=== PATIENT | female | born 1995 | race Asian ===

== ENCOUNTER 2023-05-28 08:00 | Outpatient (CLI) | payer OTHER ==
[2023-05-28 16:02] LABS: BILIRUBIN,URINE NEGATIVE (NEGATIVE); GLUCOSE, URINE (UA) NEGATIVE (NEGATIVE); KETONES,URINE (UA) NEGATIVE (NEGATIVE); LEUKOCYTE ESTERASE, URINE MODERATE (NEGATIVE); NITRITE,URINE NEGATIVE (NEGATIVE); OCCULT BLOOD,URINE TRACE-INTA (NEGATIVE); PROTEIN,URINE NEGATIVE (NEGATIVE); UROBILINOGEN,URINE 0.2 (NORMAL) E.U./dL (NORMAL)
[2023-05-28 16:03] LABS: CLARITY,URINE HAZY (CLEAR)
[2023-05-28 16:16] LABS: BACTERIA,URINE Moderate /HPF (None Seen); RBC,URINE 0-5 /HPF (0-5); SQUAMOUS EPITHELIAL CELL,UR MANY Squamous (<= Few); WBC,URINE >25 /HPF (0-5)
== END 2023-05-28 23:59 | disposition home or self-care (01) ==
LOC: LAB 08:00
PROVIDERS: ATTEND Obstetrics & Gynecology
DX: Z34.00 Encounter for supervision of normal first pregnancy, unspecified trimester (principal)
CPT/HCPCS: 81001; 87086

== ENCOUNTER 2023-06-03 18:26 | Outpatient (CLI) | payer OTHER ==
--- NOTE | 2023-06-04 16:09 | Ultrasound Report ---
PROCEDURE: OB First Trimester INDICATIONS: POSITIVE TEST OUTSIDE/PRIOR DATING DATA: Last menstrual period (LMP): 04/05/2023. LMP-based estimated date of delivery (LEO): 01/10/2024. First dating scan (date and location): 06/03/2023 01/10/2024. Estimated date of delivery (LEO) from first dating scan: . TECHNIQUE: Real-time scanning was performed of the fetus and maternal pelvic organs, with image documentation. COMPARISON: None. FINDINGS: Intrauterine gestational sac present. Embryo: Single intrauterine is present with crown-rump length measuring 1.9 cm correspondi ng to 8 weeks 3 days. Heart rate: 176 bpm. Other: Subchorionic hemorrhage is present measuring 1.8 x 1.3 x 1.4 cm. Measurement variability in dating: +/- 4 weeks by LMP, +/- 7 days by mean sac diameter (use before 6 weeks gestation if crown-rump length not able to be measured), +/- 5 days by crown-rump length (6-12 weeks gestation). Maternal organs: Ovaries appear within normal limits. IMPRESSION: Single live intrauterine with ultrasound gestational age of 8 weeks 3 days. Small subchorio marychuy hemorrhage. Recommend follow-up imaging at 20-22 weeks for dates and anatomy. Reviewed by: Pepper Zavaleta MD on 06/04/2023 4:07 PM PDT Approved by: Pepper Zavaleta MD on 06/04/2023 4:07 PM PDT Station ID: [id number]
== END 2023-06-03 18:27 | disposition home or self-care (01) ==
LOC: DI 18:26
PROVIDERS: ATTEND Obstetrics & Gynecology
DX: O20.8 Other hemorrhage in early pregnancy (principal); Z3A.08 8 weeks gestation of pregnancy; Z36.89 Encounter for other specified antenatal screening
CPT/HCPCS: 36415; 85025; 86592; 86762; 86787; 86803; 86850; 86900; 86901; 87340; 87389

== ENCOUNTER 2023-06-03 19:13 | Outpatient (CLI) | payer OTHER ==
[2023-06-03 20:04] LABS: BASOPHILS % (AUTO) 0.4 %; EOSINOPHILS # (AUTO) 0.1 10^3/uL (0.0-0.7); EOSINOPHILS % (AUTO) 1.2 %; HCT - HEMATOCRIT 35.1 % (37.0-47.0); LYMPHOCYTES # (AUTO) 2.1 10^3/uL (1.5-3.5); LYMPHOCYTES % (AUTO) 19.4 %; MEAN CORPUSCULAR HEMOGLOBIN 29.1 pg (27.0-31.0); MEAN CORPUSCULAR HGB CONC 34.2 g/dL (32.0-36.0); MEAN PLATELET VOLUME 10.3 fL (7.9-10.8); MONOCYTES # (AUTO) 0.9 10^3/uL (0.0-1.0); MONOCYTES % (AUTO) 8.5 %; NEUTROPHILS # (AUTO) 7.5 10^3/uL (1.5-6.6); NEUTROPHILS % (AUTO) 70.2 %; PLT - PLATELET COUNT 285 10^3/uL (130-450); RED BLOOD COUNT 4.13 10^6/uL (4.20-5.40); RED CELL DISTRIBUTION WIDTH 13.2 % (12.0-15.0); WHITE BLOOD COUNT 10.6 x10^3/uL (4.8-10.8)
[2023-06-05 08:10] LABS: HBsAG SCREEN Negative (Negative); RPR Non Reactive (Non Reactive); VARICELLA-ZOSTER AB IGG 266 index (Immune >165)
[2023-06-05 19:07] LABS: HCV AB Non Reactive (Non Reactive); HIV SCREEN 4TH GENERATION Non Reactive (Non Reactive)
== END 2023-06-03 19:14 | disposition home or self-care (01) ==
LOC: LAB 19:13
PROVIDERS: ATTEND Obstetrics & Gynecology
DX: Z34.00 Encounter for supervision of normal first pregnancy, unspecified trimester (principal); Z36.89 Encounter for other specified antenatal screening
CPT/HCPCS: 36415; 85025; 86592; 86762; 86787; 86803; 86850; 86900; 86901; 87340; 87389

== ENCOUNTER 2023-06-18 08:00 | Outpatient (CLI) | payer OTHER ==
[2023-06-18 22:15] LABS: CHLAMYDIA TRACHOMATIS DNA NEGATIVE (NEGATIVE); NEISSERIA GONORRHOEAE DNA NEGATIVE (NEGATIVE); TRICHOMONAS VAGINALIS DNA NEGATIVE (NEGATIVE)
== END 2023-06-18 23:59 | disposition home or self-care (01) ==
LOC: LAB.WC 08:00
PROVIDERS: ATTEND Obstetrics & Gynecology
DX: Z11.3 Encounter for screening for infections with a predominantly sexual mode of transmission (principal)
CPT/HCPCS: 87491; 87591; 87661

== ENCOUNTER 2023-06-18 14:14 | Outpatient (CLI) | payer OTHER | END 2023-06-18 14:15 | disposition home or self-care (01) | LOC: LAB 14:14 | PROVIDERS: ATTEND Obstetrics & Gynecology | DX: Z34.00 Encounter for supervision of normal first pregnancy, unspecified trimester (principal) | CPT/HCPCS: 81599; 83020; 86777; 86778; 87491; 87591; 87661 ==

== ENCOUNTER 2023-08-20 09:39 | Outpatient (CLI) | payer OTHER ==
[2023-08-22 21:14] LABS: AFP MOM 1.21 (.); AFP VALUE 70.2 ng/mL (.); GEST. AGE ON COLLECTION DATE 19.6 weeks (.); INSULIN DEP DIABETES No (.); MATERNAL AGE AT EDD 28.1 yr (.); MULTIPLE GESTATION No (.); OPEN SPINA BIFIDA RISK 1 IN 6301 (.); RACE Other (.); RESULTS Report (.); TEST RESULTS *Screen Negative* (.); WEIGHT 136 lbs (.)
== END 2023-08-20 09:40 | disposition home or self-care (01) ==
LOC: LAB 09:39
PROVIDERS: ATTEND Obstetrics & Gynecology
DX: Z34.00 Encounter for supervision of normal first pregnancy, unspecified trimester (principal)
CPT/HCPCS: 36415; 82105

== ENCOUNTER 2023-09-01 19:04 | Outpatient (CLI) | payer OTHER ==
--- NOTE | 2023-09-02 11:53 | Ultrasound Report ---
PROCEDURE: OB Anatomy Scan INDICATIONS: SUPERVISION OF OUTSIDE/PRIOR DATING DATA: Last menstrual period (LMP): 04/05/2023. LMP-based estimated date of delivery (LEO): 01/10/2024. First dating scan (date and location): 06/03/2023. Estimated date of delivery (LEO) from first dating scan: 01/10/2024. The below data below was generated using the clinical/altered LEO of 01/10/2024 TECHNIQUE: Real-time scanning was performed of the fetus, with image documentation and biometric measurements. COMPARISON: OB ultrasound 06/03/2023 FINDINGS: General: A single living intrauterine gestation is present. Presentation: Transverse Placenta: Placental position is anterior, without previa. Amniotic fluid index: 19.7 cm, within normal limits for gestational age. heart rate: 152 beats per minute. Maternal cervical canal: 4.6 cm long; normal length is 2.5 cm or more. biometrics: Biparietal diameter: 5.5 cm 22 weeks 5 days 92nd percentile Head circumference: 20.2 cm 22 weeks 2 days 82nd percentile Abdominal circumference: 17.1 cm 22 weeks 0 days 68th percentile Femur length: 3.5 cm 21 weeks 0 days 32nd percentile Estimated gestational age from initial scan: 21 weeks 2 days Composite gestational age from present scan: 22 weeks 0 days Estimated weight and percentile: 440 g 67th percentile Measurement variability in biometric dating: +/- 10 days from 12-20 weeks gestation, +/- 2 weeks from 20-30 weeks gestation, +/- 3 weeks at 30 weeks gestation or later. Anatomic survey: Neuro: Ventricles are normal at less than 10 mm. Cisterna magna is normal at 3-11 mm. Cerebellum i s normal in size and morphology. Face: Nose and lips as well as facial profile are suboptimally evaluated. Spine: No evidence for spina bifida. Heart: 4-chambered heart is present, with normal ventricular outflow tracts. Diaphragm: Diaphragm is intact. Stomach: Left-sided stomach is present. Kidneys: No hydronephrosis. Normal is less than 5 mm in 2nd trimester, less than 7 mm in 3rd trimester. Cord: 3 vessel cord has orthotopic insertion. Bladder: Normal in size. Extremities: All 4 extremities are visualized. IMPRESSION: Single live intrauterine with gestational age today of 20 weeks 0 days. Nose/lips as well as profile are suboptimally evaluated. Recommend follow-up ultrasound for further e valuation. Reviewed by: Pepper Zavaleta MD on 09/02/2023 11:52 AM PST Approved by: Pepper Zavaleta MD on 09/02/2023 11:52 AM [facility] Station ID: [id number]
== END 2023-09-01 19:05 | disposition home or self-care (01) ==
LOC: DI 19:04
PROVIDERS: ATTEND Obstetrics & Gynecology
DX: Z34.02 Encounter for supervision of normal first pregnancy, second trimester (principal)

== ENCOUNTER 2023-09-05 15:34 | Outpatient (CLI) | payer OTHER ==
--- NOTE | 2023-09-05 19:37 | Ultrasound Report ---
PROCEDURE: OB Follow up INDICATIONS: SUPERVISION OF OUTSIDE/PRIOR DATING DATA: Last menstrual period (LMP): 04/05/2023. LMP-based estimated date of delivery (LEO): 01/10/2024. First dating scan (date and location): 06/03/2023. Estimated date of delivery (LEO) from first dating scan: 01/10/2024. The below data below was generated using the working LEO of 01/10/2024 TECHNIQUE: Real-time scanning was performed of the fetus, with image documentation. Endovaginal scanning: Not performed. COMPARISON: OB ultrasound 09/01/2023 FINDINGS: General: A single living intrauterine gestation is present. Presentation: Cephalic Placenta: Placental position is anterior, without previa. Amniotic fluid index: 18.5 cm, normal for gestational age. heart rate: 153 beats per minute. Maternal cervical canal: Closed Estimated gestational age from initial scan: 21 weeks 6 days Other: face, nose and lips, and profile view are better seen on the current exam and appear to be within normal limits. IMPRESSION: 1.Single live intrauterine with estimated gestational age of 21 weeks 6 days. 2. facial profile and nose/lips appear normal. Reviewed by: Adrián Woo MD on 09/05/2023 7:36 PM PST Approved by: Adrián Woo MD on 09/05/2023 7:36 PM PST Station ID: [id number]
== END 2023-09-05 15:35 | disposition home or self-care (01) ==
LOC: DI 15:34
PROVIDERS: ATTEND Obstetrics & Gynecology
DX: Z34.02 Encounter for supervision of normal first pregnancy, second trimester (principal)

== ENCOUNTER 2023-09-10 09:48 | Outpatient (CLI) | payer OTHER ==
[2023-09-10 09:59] LABS: HCT - HEMATOCRIT 33.5 % (37.0-47.0); HGB - HEMOGLOBIN 10.9 g/dL (12.0-16.0); MEAN CORPUSCULAR HEMOGLOBIN 29.1 pg (27.0-31.0); MEAN CORPUSCULAR HGB CONC 32.5 g/dL (32.0-36.0); MEAN CORPUSCULAR VOLUME 89.6 fL (81.0-99.0); MEAN PLATELET VOLUME 9.6 fL (7.9-10.8); RED BLOOD COUNT 3.74 10^6/uL (4.20-5.40); WHITE BLOOD COUNT 11.2 x10^3/uL (4.8-10.8)
[2023-09-10 10:00] LABS: BILIRUBIN,URINE NEGATIVE (NEGATIVE); GLUCOSE, URINE (UA) NEGATIVE (NEGATIVE); KETONES,URINE (UA) NEGATIVE (NEGATIVE); LEUKOCYTE ESTERASE, URINE TRACE (NEGATIVE); NITRITE,URINE NEGATIVE (NEGATIVE); OCCULT BLOOD,URINE NEGATIVE (NEGATIVE); PH,URINE 6.5 PH (5.0-7.5); PROTEIN,URINE NEGATIVE (NEGATIVE); UROBILINOGEN,URINE 0.2 (NORMAL) E.U./dL (NORMAL)
[2023-09-10 10:02] LABS: CLARITY,URINE CLEAR (CLEAR)
[2023-09-10 11:22] LABS: BACTERIA,URINE Rare /HPF (None Seen); RBC,URINE 0-5 /HPF (0-5); SQUAMOUS EPITHELIAL CELL,UR FEW Squamous (<= Few); WBC,URINE 0-3 /HPF (0-5)
== END 2023-09-10 09:49 | disposition home or self-care (01) ==
LOC: LAB 09:48
PROVIDERS: ATTEND Obstetrics & Gynecology
DX: O99.011 Anemia complicating pregnancy, first trimester (principal); O99.281 Endocrine, nutritional and metabolic diseases complicating pregnancy, first trimester; E73.9 Lactose intolerance, unspecified; O99.891 Other specified diseases and conditions complicating pregnancy; R35.0 Frequency of micturition
CPT/HCPCS: 36415; 81001; 85027; 87086

== ENCOUNTER 2023-09-16 08:37 | Outpatient (CLI) | payer OTHER ==
--- NOTE | 2023-09-17 14:48 | Ultrasound Report ---
LIMITED ULTRASOUND OF LEFT BREAST: 09/16/2023 CLINICAL: Palpable left breast lump by physician. Patient reports skin redness and calor for the past 2 weeks in area of physician palpable concern. Patient is 23 weeks . Comparison is made to exam dated: 02/28/2023 [facility]. Color flow ultrasound of the left breast 7-9 o'clock region was performed. Rowe scale images of the real-time examination were reviewed. There is skin thickening in the area of clinical concern in the left breast lower inner quadrant. No discrete mass, fluid collection or other sonographic abnormality visualized. It Support Engineer images ta josias along the 7, 8 and 9 o'clock axis. IMPRESSION: PROBABLY BENIGN Left breast lower inner quadrant skin thickening corresponding to area of clinical concern of skin re dness and calor. No sonographic abnormality visualized in the breast parenchyma corresponding to area of provider palpable concern. Finding of skin thickening may represent mastitis without abscess and is probably benign. Patient is not on any antibiotics at time of exam. Recommend follow up left breas t ultrasound in 4-6 weeks to demonstrate stability/resolution. Clinical follow-up is also recommended. Patient was instructed to return sooner if development of any clinically suspicious findings in the interim. Findings and recommendations were conveyed to the patient during today's evaluation. This exam was interpreted at Station ID: [id number]. Electronically Signed By: Kimberly Robles M.D., PH.D eb/:09/16/2023 15:07:43 Ultrasound BI-RADS: 3 Probably benign BI-RADS CATEGORY: (3) - 3 Ultrasound [id number] 1 month follow-up LATERALITY: (B)
== END 2023-09-16 08:38 | disposition home or self-care (01) ==
LOC: DI 08:37
PROVIDERS: ATTEND Obstetrics & Gynecology
DX: O99.891 Other specified diseases and conditions complicating pregnancy (principal); N64.59 Other signs and symptoms in breast; N63.24 Unspecified lump in the left breast, lower inner quadrant; Z3A.23 23 weeks gestation of pregnancy

== ENCOUNTER 2023-09-19 12:52 | Outpatient (CLI) | payer OTHER ==
[2023-09-19 13:24] LABS: BASOPHILS % (AUTO) 0.3 %; EOSINOPHILS # (AUTO) 0.1 10^3/uL (0.0-0.7); EOSINOPHILS % (AUTO) 1.1 %; HCT - HEMATOCRIT 33.3 % (37.0-47.0); HGB - HEMOGLOBIN 10.9 g/dL (12.0-16.0); LYMPHOCYTES # (AUTO) 1.9 10^3/uL (1.5-3.5); LYMPHOCYTES % (AUTO) 18.5 %; MEAN CORPUSCULAR HEMOGLOBIN 29.3 pg (27.0-31.0); MEAN CORPUSCULAR HGB CONC 32.7 g/dL (32.0-36.0); MEAN CORPUSCULAR VOLUME 89.5 fL (81.0-99.0); MEAN PLATELET VOLUME 9.3 fL (7.9-10.8); MONOCYTES # (AUTO) 0.4 10^3/uL (0.0-1.0); MONOCYTES % (AUTO) 4.1 %; NEUTROPHILS # (AUTO) 7.6 10^3/uL (1.5-6.6); NEUTROPHILS % (AUTO) 75.2 %; PLT - PLATELET COUNT 289 10^3/uL (130-450); RED BLOOD COUNT 3.72 10^6/uL (4.20-5.40); WHITE BLOOD COUNT 10.1 x10^3/uL (4.8-10.8)
[2023-09-19 13:34] VITALS: BP 117/68; O2SAT 98
[2023-09-19 13:39] LABS: ALBUMIN 3.8 g/dL (3.2-5.5); ALBUMIN/GLOBULIN RATIO 1.1 (1.0-2.2); BILIRUBIN,TOTAL 0.2 mg/dL (0.2-1.0); CALCIUM 9.2 mg/dL (8.5-10.3); CREATININE 0.6 mg/dL (0.6-1.3); POTASSIUM 3.4 mmol/L (3.5-4.5); TOTAL PROTEIN 7.2 g/dL (6.4-8.9)
--- NOTE | 2023-09-19 21:02 | PROVIDER PROGRESS NOTE ---
- HPI Chief Complaint: Other (dizziness and fatigue) Current : 27 yo G1at 23 w 6d. was here working in the hospital lab. became dizzy and light headed so came to triage. 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 very tired. only getting about 5 hours of sleep. Only drinking about 24 oz of water daily. Vital Signs Temperature 98.2 F 09/19/23 13:00 Heart Rate 86 09/19/23 13:00 Respiratory Rate 17 09/19/23 13:00 Blood Pressure 117/68 09/19/23 13:00 O2 Saturation 98 09/19/23 13:00 Temperature 98.2 F 09/19/23 13:18 Heart Rate 86 09/19/23 13:00 Respiratory Rate 17 09/19/23 13:00 Blood Pressure 117/68 09/19/23 13:00 O2 Saturation 98 09/19/23 13:00 If not protocol: Oxygen Flow, liters/minute - Exam appears tired. abdomen not tender. fht doppler nromal. labs checked and normal. - Procedures Findings: no abnormal labs. vitals normal. seems she is just very tired. - Plan Plan: discharge home and rest tonight and tomorrow. try hard to drink 48 oz of water daily and eat small frequent meals. try to get 7 hours + sleep nightly.
== END 2023-09-19 15:25 | disposition home or self-care (01) ==
LOC: WFO 12:52 → FBP 12:54 → WFO 15:25
PROVIDERS: ATTEND Obstetrics & Gynecology
DX: O99.891 Other specified diseases and conditions complicating pregnancy (principal); R42 Dizziness and giddiness; R53.83 Other fatigue; Z3A.23 23 weeks gestation of pregnancy
CPT/HCPCS: 36415; 80053; 83735; 85025; 99212; 99213

== ENCOUNTER 2023-10-09 07:02 | Outpatient (CLI) | payer OTHER ==
[2023-10-09 08:17] LABS: HCT - HEMATOCRIT 31.7 % (37.0-47.0); HGB - HEMOGLOBIN 10.2 g/dL (12.0-16.0); MEAN CORPUSCULAR HEMOGLOBIN 28.7 pg (27.0-31.0); MEAN CORPUSCULAR HGB CONC 32.2 g/dL (32.0-36.0); MEAN PLATELET VOLUME 8.8 fL (7.9-10.8); RED BLOOD COUNT 3.56 10^6/uL (4.20-5.40); RED CELL DISTRIBUTION WIDTH 13.4 % (12.0-15.0); WHITE BLOOD COUNT 8.9 x10^3/uL (4.8-10.8)
== END 2023-10-09 07:03 | disposition home or self-care (01) ==
LOC: LAB 07:02
PROVIDERS: ATTEND Obstetrics & Gynecology
DX: Z34.00 Encounter for supervision of normal first pregnancy, unspecified trimester (principal); Z36.89 Encounter for other specified antenatal screening
CPT/HCPCS: 36415; 82950; 85027

== ENCOUNTER 2023-10-13 07:49 | Outpatient (CLI) | payer OTHER ==
[2023-10-13 08:22] LABS: GTT GLUCOSE,FASTING 82 mg/dL (74-109)
== END 2023-10-13 07:50 | disposition home or self-care (01) ==
LOC: LAB 07:49
PROVIDERS: ATTEND Obstetrics & Gynecology
DX: O99.810 Abnormal glucose complicating pregnancy (principal)
CPT/HCPCS: 36415; 82951; 82952

== ENCOUNTER 2023-10-14 13:30 | Outpatient (CLI) | payer OTHER ==
--- NOTE | 2023-10-15 09:41 | Ultrasound Report ---
LIMITED ULTRASOUND OF LEFT BREAST: 10/14/2023 CLINICAL: Patient returns for a 6 week follow up of the left breast. Comparison is made to exam dated: 09/16/2023 ultrasound - [facility]. Real-time ultrasound of the left breast 7-9 o'clock region was performed. Rowe scale images of the real-time examination were reviewed. Skin thickening is again seen at the clinical area of concern in the left breast 7-9 o'clock position , which does not appear significantly changed when compared to the ultrasound from 09/16/2023. No flui d collection, abscess, or mass is seen. IMPRESSION: BENIGN Stable nonspecific skin thickening in the lower in ner quadrant of the left breast corresponding to t he area of clinical concern. This again may represent mastitis. Recommend clinical treatment and foll ow up to resolution. Consider skin biopsy if findings do not resolve after appropriate treatment. Rep eat ultrasound may be performed if symptoms worsen or change. There is no sonographic evidence of malignancy. This exam was interpreted at Station ID: [id number]. Electronically Signed By: Adrián castillo/shannon:10/14/2023 16:13:46 letter sent: No_Letter Ultrasound BI-RADS: 2 Benign BI-RADS CATEGORY: (2) - 2 RECOMMENDATION: (ADDMAM) - Recommend additional mammographic views. no recall/no msg LATERALITY: (B)
== END 2023-10-14 13:31 | disposition home or self-care (01) ==
LOC: DI 13:30
PROVIDERS: ATTEND Obstetrics & Gynecology
DX: N64.59 Other signs and symptoms in breast (principal); N63.20 Unspecified lump in the left breast, unspecified quadrant

== ENCOUNTER 2023-11-05 13:46 | Outpatient (CLI) | payer OTHER ==
[2023-11-05 14:22] LABS: BILIRUBIN,URINE NEGATIVE (NEGATIVE); GLUCOSE, URINE (UA) 100 mg/dL (NEGATIVE); KETONES,URINE (UA) NEGATIVE (NEGATIVE); LEUKOCYTE ESTERASE, URINE SMALL (NEGATIVE); NITRITE,URINE NEGATIVE (NEGATIVE); OCCULT BLOOD,URINE NEGATIVE (NEGATIVE); PH,URINE 6.5 PH (5.0-7.5); PROTEIN,URINE NEGATIVE (NEGATIVE); UROBILINOGEN,URINE 0.2 (NORMAL) E.U./dL (NORMAL)
[2023-11-05 14:31] LABS: BACTERIA,URINE Few /HPF (None Seen); CLARITY,URINE HAZY (CLEAR); RBC,URINE 0-5 /HPF (0-5); SQUAMOUS EPITHELIAL CELL,UR MOD Squamous (<= Few)
[2023-11-05 14:48] LABS: CREATININE,URINE 35.6 mg/dL; PROTEIN/CREATININE RATIO,URINE 0.4 (<=0.2)
[2023-11-05 15:25] LABS: BASOPHILS % (AUTO) 0.3 %; EOSINOPHILS # (AUTO) 0.1 10^3/uL (0.0-0.7); EOSINOPHILS % (AUTO) 1.1 %; HCT - HEMATOCRIT 35.6 % (37.0-47.0); HGB - HEMOGLOBIN 11.4 g/dL (12.0-16.0); LYMPHOCYTES # (AUTO) 1.9 10^3/uL (1.5-3.5); LYMPHOCYTES % (AUTO) 18.1 %; MEAN CORPUSCULAR VOLUME 90.6 fL (81.0-99.0); MEAN PLATELET VOLUME 9.7 fL (7.9-10.8); MONOCYTES # (AUTO) 0.7 10^3/uL (0.0-1.0); MONOCYTES % (AUTO) 6.7 %; NEUTROPHILS # (AUTO) 7.4 10^3/uL (1.5-6.6); NEUTROPHILS % (AUTO) 70.5 %; PLT - PLATELET COUNT 255 10^3/uL (130-450); RED BLOOD COUNT 3.93 10^6/uL (4.20-5.40); WHITE BLOOD COUNT 10.5 x10^3/uL (4.8-10.8)
[2023-11-05 16:00] LABS: ALBUMIN 3.8 g/dL (3.2-5.5); ALBUMIN/GLOBULIN RATIO 1.2 (1.0-2.2); BILIRUBIN,TOTAL 0.2 mg/dL (0.2-1.0); CALCIUM 9.3 mg/dL (8.5-10.3); CREATININE 0.4 mg/dL (0.6-1.3); POTASSIUM 3.9 mmol/L (3.5-4.5)
== END 2023-11-05 13:47 | disposition home or self-care (01) ==
LOC: LAB 13:46
PROVIDERS: ATTEND Nurse Practitioner
DX: Z87.440 Personal history of urinary (tract) infections (principal); Z36.89 Encounter for other specified antenatal screening; R51.9 Headache, unspecified; R60.0 Localized edema
CPT/HCPCS: 36415; 80053; 81001; 82570; 84156; 84550; 85025; 87086

== ENCOUNTER 2023-11-19 12:47 | Outpatient (CLI) | payer OTHER ==
[2023-11-19 12:57] LABS: HCT - HEMATOCRIT 33.4 % (37.0-47.0); MEAN CORPUSCULAR HEMOGLOBIN 29.6 pg (27.0-31.0); MEAN CORPUSCULAR HGB CONC 32.9 g/dL (32.0-36.0); MEAN PLATELET VOLUME 9.6 fL (7.9-10.8); RED BLOOD COUNT 3.71 10^6/uL (4.20-5.40); RED CELL DISTRIBUTION WIDTH 15.4 % (12.0-15.0); WHITE BLOOD COUNT 9.9 x10^3/uL (4.8-10.8)
[2023-11-19 13:26] LABS: ALBUMIN 3.6 g/dL (3.2-5.5); BILIRUBIN,TOTAL 0.3 mg/dL (0.2-1.0); CALCIUM 9.5 mg/dL (8.5-10.3); CREATININE 0.5 mg/dL (0.6-1.3); POTASSIUM 3.6 mmol/L (3.5-4.5); TOTAL PROTEIN 7.3 g/dL (6.4-8.9)
[2023-11-19 14:00] LABS: CREATININE,URINE 56.4 mg/dL; PROTEIN/CREATININE RATIO,URINE 0.3 (<=0.2)
== END 2023-11-19 12:48 | disposition home or self-care (01) ==
LOC: LAB 12:47
PROVIDERS: ATTEND Obstetrics & Gynecology
DX: R51.9 Headache, unspecified (principal)
CPT/HCPCS: 36415; 80053; 82570; 84156; 85027

== ENCOUNTER 2023-11-26 15:31 | Emergency (ER) | payer OTHER ==
--- NOTE | 2023-11-26 15:54 | ED Physician Documentation ---
PD HPI CHEST PAIN - Stated complaint Stated Complaint: DIFFICULTY BREATHING - Chief complaint Chief Complaint: Resp - History obtained from History obtained from: Patient - Additional information Additional information: Otherwise healthy young woman who is a G1 at 33 weeks. Over the last few days she has developed shortness of breath especially with exertion but also worse with lying flat. It is associated with some chest pressure since yesterday. She has had a little bit of pedal edema bilaterally but no calf pain. No history of heart or lung problems. PD PAST MEDICAL HISTORY - Past Medical History Past Medical History: No - Past Surgical History Past Surgical History: No - Present Medications Home Medications: Ambulatory Orders Medication Instructions Recorded Confirmed Ferrous Sulfate 325 mg PO DAILY 11/26/23 11/26/23 - Allergies Allergies/Adverse Reactions: Allergies Allergy/AdvReac Type Severity Reaction Status Date / Time No Known Drug Allergies Allergy Verified 11/26/23 15:37 - Social History Does the pt smoke?: No Smoking Status: Never smoker - Immunizations Immunizations are current?: Yes PD ED PE NORMAL - Vitals Vital signs reviewed: Yes - General General: Alert and oriented X 3, No acute distress - HEENT HEENT: PERRL, EOMI - Neck Neck: Supple, no meningeal sign, No bony TTP, No bruit - Cardiac Cardiac: RRR, No murmur - Respiratory Respiratory: No respiratory distress, Clear bilaterally - Abdomen Abdomen: Non tender, Other (Gravid belly) - Extremities Extremities: No edema, No calf tenderness / cord - Neuro Neuro: Alert and oriented X 3 Results - Vitals Vitals: Vital Signs - 24 hr 11/26/23 15:36 Temperature 36.7 C Heart Rate 87 Respiratory 20 Rate Blood Pressure 114/63 O2 Saturation 99 Oxygen O2 Source Room air - EKG (time done) 1607 EKG releavant findings:: EKG personally interpreted by author of this note. Relevant findings are: Rate: Rate (enter#) (80) Rhythm: NSR [place]: Normal Intervals: Normal SD QRS: Low voltage Ischemia: Normal ST segments - Labs Labs: Laboratory Tests 11/26/23 11/26/23 16:01 16:01 WBC 9.3 RBC 3.72 L Hgb 11.0 L Hct 33.6 L MCV 90.3 MCH 29.6 MCHC 32.7 RDW 15.2 H Plt Count 240 MPV 9.3 Neut # (Auto) 6.5 Lymph # (Auto) 1.7 [place] # (Auto) 0.7 Eos # (Auto) 0.1 Baso # (Auto) 0.0 Absolute Nucleated RBC 0.00 Nucleated RBC % 0.0 Sodium 134 L Potassium 3.4 L Chloride 102 Carbon Dioxide 26 Anion Gap 6.0 BUN 5 L Creatinine 0.4 L Estimated GFR (MDRD) 190 Glucose 88 Calcium 9.1 Total Bilirubin 0.2 AST 18 ALT 20 Alkaline Phosphatase 72 Troponin I High Sens < 2.3 L Total Protein 6.9 Albumin 3.6 Globulin 3.3 Albumin/Globulin Ratio 1.1 Lipase 19 - Rads (name of study) 1v cxr - neg Relevant Findings:: Final report received, EMP independent interpretation of test PD Medical Decision Making - ED course ED course: 28-year-old woman presents with shortness of breath and chest pain in the setting of 33 weeks of . She has normal vital signs. She is PERC negative. Heart score is 0. Normal chest x-ray and unremarkable EKG. Departure - Departure Disposition: 01 Home, Self Care Clinical Impression: Dyspnea Qualifiers: Dyspnea type: shortness of breath Qualified Code(s): R06.02 - Shortness of breath; R06.00 - Dyspnea, unspecified; R06.01 - Orthopnea Chest pain Qualifiers: Chest pain type: unspecified Qualified Code(s): R07.9 - Chest pain, unspecified Condition: Stable Record reviewed to determine appropriate education?: Yes Instructions: ED Chest Pain NonCardiac Comments: Your workup today demonstrates no serious cause of your chest pressure and shortness of breath. It could just be from the advancing pushing up in your diaphragm, do certainly return if you worsen or if new symptoms develop and follow-up with Dr. Perkins next week. Forms: PCP List
[2023-11-26 16:07] LABS: BASOPHILS % (AUTO) 0.3 %; EOSINOPHILS # (AUTO) 0.1 10^3/uL (0.0-0.7); EOSINOPHILS % (AUTO) 1.4 %; HCT - HEMATOCRIT 33.6 % (37.0-47.0); LYMPHOCYTES # (AUTO) 1.7 10^3/uL (1.5-3.5); LYMPHOCYTES % (AUTO) 18.5 %; MEAN CORPUSCULAR HEMOGLOBIN 29.6 pg (27.0-31.0); MEAN CORPUSCULAR HGB CONC 32.7 g/dL (32.0-36.0); MEAN CORPUSCULAR VOLUME 90.3 fL (81.0-99.0); MEAN PLATELET VOLUME 9.3 fL (7.9-10.8); MONOCYTES # (AUTO) 0.7 10^3/uL (0.0-1.0); MONOCYTES % (AUTO) 7.5 %; NEUTROPHILS # (AUTO) 6.5 10^3/uL (1.5-6.6); PLT - PLATELET COUNT 240 10^3/uL (130-450); RED BLOOD COUNT 3.72 10^6/uL (4.20-5.40); RED CELL DISTRIBUTION WIDTH 15.2 % (12.0-15.0); WHITE BLOOD COUNT 9.3 x10^3/uL (4.8-10.8)
[2023-11-26 16:24] LABS: ALBUMIN 3.6 g/dL (3.2-5.5); ALBUMIN/GLOBULIN RATIO 1.1 (1.0-2.2); ALKALINE PHOSPHATASE 72 IU/L (42-121); ALT ALANINE AMINOTRANSFERASE 20 IU/L (10-60); AST ASPARTATE AMINOTRANSFERASE 18 IU/L (10-42); BILIRUBIN,TOTAL 0.2 mg/dL (0.2-1.0); BUN - BLOOD UREA NITROGEN 5 mg/dL (6-20); CALCIUM 9.1 mg/dL (8.5-10.3); CARBON DIOXIDE - CO2 26 mmol/L (21-32); CHLORIDE 102 mmol/L (101-111); CREATININE 0.4 mg/dL (0.6-1.3); GFR - MDRD 190 (>89); GLUCOSE 88 mg/dL (74-104); LIPASE 19 U/L (11-82); POTASSIUM 3.4 mmol/L (3.5-4.5); SODIUM 134 mmol/L (135-145); TOTAL PROTEIN 6.9 g/dL (6.4-8.9)
--- NOTE | 2023-11-26 16:29 | XRAY Report ---
PROCEDURE: Chest 1V INDICATIONS: Chest Pain TECHNIQUE: One view of the chest was acquired. COMPARISON: None. FINDINGS: Surgical changes and devices: None. Lungs and pleura: No pleural effusions or pneumothorax. Lungs are clear. Mediastinum: Mediastinal contours appear normal. Heart size is normal. Bones and chest wall: No suspicious bony lesions. Overlying soft tissues appear unremarkable. IMPRESSION: No acute cardiopulmonary process. Reviewed by: Hema Conroy MD on 11/26/2023 4:28 PM PDT Approved by: Hema Conroy MD on 11/26/2023 4:28 PM PDT Station ID: [id number]
[2023-11-26 16:30] LABS: TROPONIN I HIGH SENSITIVITY < 2.3 ng/L (2.3-14.8)
[2023-11-26 16:56] VITALS: BP 102/62; O2SAT 96
== END 2023-11-26 16:52 | disposition home or self-care (01) ==
LOC: ED 15:31
DX: O99.513 Diseases of the respiratory system complicating pregnancy, third trimester (principal); Z3A.33 33 weeks gestation of pregnancy; R06.02 Shortness of breath; R06.01 Orthopnea; R07.9 Chest pain, unspecified
CPT/HCPCS: 36415; 80053; 83690; 84484; 85025; 93005; 99283; 99284

== ENCOUNTER 2023-12-17 08:00 | Outpatient (CLI) | payer OTHER | END 2023-12-17 23:59 | disposition home or self-care (01) | LOC: LAB.WC 08:00 | PROVIDERS: ATTEND Obstetrics & Gynecology | DX: Z36.85 Encounter for antenatal screening for Streptococcus B (principal) | CPT/HCPCS: 87797 ==

== ENCOUNTER 2023-12-30 14:15 | Outpatient (CLI) | payer OTHER ==
--- NOTE | 2023-12-30 15:37 | Ultrasound Report ---
PROCEDURE: OB Follow up INDICATIONS: EXCESSIVE GROWTH OUTSIDE/PRIOR DATING DATA: Last menstrual period (LMP): 04/05/2023. LMP-based estimated date of delivery (LEO): 01/10/2024. First dating scan (date and location): 06/03/2023. Estimated date of delivery (LEO) from first dating scan: 01/10/2024. The below data below was generated using the LEO of 01/10/2024 TECHNIQUE: Real-time scanning was performed of the fetus, with image documentation and biometric measurements. Endovaginal scanning: Not performed. COMPARISON: 09/05/2023 FINDINGS: General: A single living intrauterine gestation is present. Presentation: Vertex Placenta: Placental position is anterior, without previa. Amniotic fluid index: 14.8 cm, within normal limits for gestational age. heart rate: 137 beats per minute. Maternal cervical canal: 3.9 cm long; normal length is 2.5 cm or more. biometrics: Biparietal diameter: 9.8 cm, 40 weeks 1 day, 90% Head circumference: 34.4 cm, 39 weeks 6 days, 60% Abdominal circumference: 36.1 cm, 40 weeks 0 days, 96% Femur length: 7.0 cm, 36 weeks 0 days, 7% Estimated gestational age from initial scan: 38 weeks 3 days Composite gestational age from present scan: 39 weeks 0 days Estimated weight and percentile: 3723 g, 83% Measurement variability in biometric dating: +/- 10 days from 12-20 weeks gestation, +/- 2 weeks from 20-30 weeks gestation, +/- 3 weeks at 30 weeks gestation or more. Other: Not applicable. IMPRESSION: 1.Single live intrauterine consistent with 39 weeks and 0 days. 2.Estimated weight is in the 83rd percentile. Biparietal diameter and abdominal circumference a re in the 90th percentile or greater while femur length is less than 10th percentile. Reviewed by: Hema Conroy MD on 12/30/2023 3:35 PM PDT Approved by: Hema Conroy MD on 12/30/2023 3:35 PM PDT Station ID: [id number]
== END 2023-12-30 14:16 | disposition home or self-care (01) ==
LOC: DI 14:15
PROVIDERS: ATTEND Obstetrics & Gynecology
DX: O36.63X0 Maternal care for excessive fetal growth, third trimester, not applicable or unspecified (principal); Z3A.39 39 weeks gestation of pregnancy

== ENCOUNTER 2024-01-04 00:13 | Outpatient (CLI) | payer OTHER ==
[2024-01-04 01:05] VITALS: BP 113/70; O2SAT 94
--- NOTE | 2024-01-04 09:29 | PROCEDURE REPORT ---
- HPI Current EDU 01/10/24 Gestation 39 Weeks and 1 Days 1 Para 0 Vital Signs Temperature 97.9 F 01/04/24 00:26 Heart Rate 89 01/04/24 00:26 Respiratory Rate 20 01/04/24 00:26 Blood Pressure 113/70 01/04/24 00:26 O2 Saturation 94 01/04/24 00:26 Temperature 97.9 F 01/04/24 00:26 Heart Rate 89 01/04/24 00:26 Respiratory Rate 20 01/04/24 00:26 Blood Pressure 113/70 01/04/24 00:26 O2 Saturation 94 01/04/24 00:26 If not protocol: Oxygen Flow, liters/minute - NST Procedure NST Procedure Start Date 01/04/24 Start Time 00:30 Stop Time 00:50 Vibroacoustic Stimulation Used No Patient States Movement Yes - Results and Plan Plan: Patient is a 20-year-old G1, P0 at 39 weeks 1 day gestation here for NST for false labor. NST Performed 01/04/2024 NST Read 01/04/2024 FHT: 115 bpm baseline, moderate variability, accelerations present, no decelerations. Reactive NST Wrens: Intermittent Diagnosis 39 weeks gestation False labor Continue with scheduled OB care
== END 2024-01-04 01:25 | disposition home or self-care (01) ==
LOC: WFO 00:13 → FBP 00:19 → WFO 01:25
PROVIDERS: ATTEND Obstetrics & Gynecology
DX: O47.1 False labor at or after 37 completed weeks of gestation (principal); Z3A.39 39 weeks gestation of pregnancy
CPT/HCPCS: 59025; 99213

== ENCOUNTER 2024-01-06 11:12 | Outpatient (CLI) | payer OTHER ==
[2024-01-06 11:35] VITALS: BP 111/63
--- NOTE | 2024-01-06 19:18 | PROVIDER PROGRESS NOTE ---
- HPI Chief Complaint: Decreased movement Current : Current EDU 01/10/24 Gestation 39 Weeks and 3 Days 1 Para 0 Vital Signs Temperature 98.2 F 01/06/24 11:25 Heart Rate 94 01/06/24 11:25 Respiratory Rate 16 01/06/24 11:25 Blood Pressure 111/63 01/06/24 11:25 Temperature 98.2 F 01/06/24 11:25 Heart Rate 94 01/06/24 11:25 Respiratory Rate 16 01/06/24 11:25 Blood Pressure 111/63 01/06/24 11:25 O2 Saturation If not protocol: Oxygen Flow, liters/minute - Procedures OB Procedure Performed: NST Diagnosis/Indication for NST: Decreased movement NST Procedure: NST Procedure Start Date 01/06/24 Start Time 11:18 Stop Time 12:01 Vibroacoustic Stimulation Used No Patient States Movement Yes Service Date of procedure: 01/06/24 Procedure Details: Reactive for of 32 weeks gestation or more. NST tracing contains at least two heart rate accelerations that are at least 15 beats per minute above the baseline rate and lasting at least 15 seconds from onset to return to baseline within a twenty minute period. Findings: patient is doing well. no concerns. baby looks great and she is feeling her baby now. plan induction for Friday. ready to be done. - Plan Plan: 39 weeks. no elevated bp. reactive nst. plan for labor induction on Friday. explained elective. will plan for 8 am and call first.
== END 2024-01-06 13:00 | disposition home or self-care (01) ==
LOC: WFO 11:12 → FBP 11:15 → WFO 13:00
PROVIDERS: ATTEND Obstetrics & Gynecology
DX: O36.8130 Decreased fetal movements, third trimester, not applicable or unspecified (principal); Z3A.39 39 weeks gestation of pregnancy
CPT/HCPCS: 59025; 99214

== ENCOUNTER 2024-01-07 06:00 | Outpatient (CLI) | payer OTHER ==
--- NOTE | 2024-01-07 06:38 | PROVIDER PROGRESS NOTE ---
<Brenda Willis - Last Filed: 01/07/24 06:35> - HPI Chief Complaint: Leakage of vaginal fluid - Exam 4 - Procedures OB Procedure Performed: NST Diagnosis/Indication for NST: Other NST Procedure: NST Procedure Start Time 06:25 Stop Time 06:45 Service Date of procedure: 01/07/24 Procedure Details: FHT baseline 135, moderate variability, + accelerations, - decelerations Contractions 1-4.5 minutes. Palpate moderately - Plan Plan: 28 yo @39+4 presents to triage evaluate for SROM that woke her with several gushes of clear fluid. GBS negative. ROM plus collected upon presentation. SVE 4. Discussed potential admission if ruptured (ROM +positive) or advancing cervical dilatation. Discussed that she may have the option to return home for early labor if not ruptured. <Colette Peters - Last Filed: 01/07/24 16:54> - HPI Current : Vital Signs Temperature 98.2 F 01/07/24 06:32 Heart Rate 80 01/07/24 06:32 Respiratory Rate 18 01/07/24 06:32 Blood Pressure 119/63 01/07/24 06:32 Temperature 98.2 F 01/07/24 06:32 Heart Rate 80 01/07/24 06:32 Respiratory Rate 18 01/07/24 06:32 Blood Pressure 119/63 01/07/24 06:32 O2 Saturation If not protocol: Oxygen Flow, liters/minute - Procedures NST Procedure: NST Procedure Start Time 11:18 Stop Time 12:01 - Plan Plan: ROM + was negative. patient was discharged home and given instructions for when to return and ideas for coping.
[2024-01-07 06:53] LABS: RUPTURE OF MEMBRANES PLUS NEGATIVE (NEGATIVE)
[2024-01-07 07:00] VITALS: BP 119/63
== END 2024-01-07 07:25 | disposition home or self-care (01) ==
LOC: WFO 06:00 → FBP 06:02 → WFO 07:25
PROVIDERS: ATTEND Obstetrics & Gynecology
DX: O99.891 Other specified diseases and conditions complicating pregnancy (principal); N89.8 Other specified noninflammatory disorders of vagina; Z3A.39 39 weeks gestation of pregnancy
CPT/HCPCS: 84112; 99214; 99215

== ENCOUNTER 2024-01-08 05:00 | Inpatient (IN) | payer OTHER ==
[2024-01-08] MEDS ORDERED: OXYTOCIN/SODIUM CHLORIDE 500 ML IV PRN (05:09)
[2024-01-08] MEDS ORDERED: CARBOPROST TROMETHAMINE 250 MCG/ML VIAL IM PRN (05:09)
[2024-01-08] MEDS ORDERED: miSOPROStoL 200 MCG TABLET BC PRN (05:09)
[2024-01-08] MEDS ORDERED: LABETALOL 20 MG/4 ML SYRINGE IVP PRN ×3 (05:09)
[2024-01-08] MEDS ORDERED: NIFEdipine 10 MG CAPSULE PO PRN (05:09)
[2024-01-08] MEDS ORDERED: METHYLERGONOVINE 0.2 MG/ML VIAL IM PRN (05:09)
[2024-01-08] MEDS ORDERED: fentaNYL 100 MCG/2 ML VIAL IVP PRN (05:09)
[2024-01-08] MEDS ORDERED: TERBUTALINE 1 MG/ML VIAL SUBQ PRN (05:09)
[2024-01-08] MEDS ORDERED: hydrALAZINE INJ 20 MG/ML VIAL IVP PRN ×2 (05:09)
[2024-01-08] MEDS ORDERED: SODIUM CHLORIDE FLUSH 0.9% 10 ML SYRINGE IVP PRN (05:09)
[2024-01-08] MEDS ORDERED: miSOPROStoL 200 MCG TABLET PR PRN (05:09)
[2024-01-08] MEDS ORDERED: lidocaine 1% 20 ML MDV ID PRN (05:09)
[2024-01-08] MEDS ORDERED: OXYTOCIN 10 UNIT/ML VIAL IM PRN (05:09)
[2024-01-08] MEDS ORDERED: TRANEXAMIC ACID IN NACL 1,000 MG/100 ML BAG IV PRN (05:09)
[2024-01-08] MEDS: SODIUM CHLORIDE FLUSH 0.9% 10 ML SYRINGE IVP SCH (06:00)
[2024-01-08] MEDS: LACTATED RINGERS 1,000 ML IV SCH (06:17)
--- NOTE | 2024-01-08 06:23 | HISTORY & PHYSICAL EXAMINATION ---
Admit History - Visit Reason Visit Reason: Contractions - : 1 Parity: 0 Risk/History: positive: None Complications This : positive: None Smoking Status: Never smoker - Mother's Labs Mother's Blood Type: positive: B Mother's RH: positive: Positive GBS: positive: Group B Step Negative Rubella Status: positive: Immune - Other Maternal History Other Maternal History: HPI: This 28 yo G1@ 39+5, weeks by LMP and confirmed by 8+3 week ultrasound. She has been dinesh intermittently the last two days, gottten worse last night and early this morning and presented to L&D at 05:05. She requested to stay at the hospital vs return for scheduled IOL as she desires nursing team support during her labor. SVE 1cm/thick/-3. She progressed to 3cm by 10am today. We reviewed management options and she desired to take things as they come. Will address pain management as she feels she needs to. She has been a patient of [facility] through her . Her has been overall uncomplicated. Has remained uncomplicated, has been taking oral iron supplements and last H&H 12.5/37.7%. Denies headache, visual changes or right upper quadrant abdominal pain. Denies nausea and vomiting. Denies urinary urgency or dysuria. does state some concern for her increasing anxiety related to labor and delivery. We discussed this in detail. She is now feeling well supported by the team. ROS: All other symptoms reviewed and were negative except per HPI. OB Hx: G1: current Medical Hx: No significant Surgical Hx: None Social Hx: Monogamous with male partner. Denies alcohol us. Denies current use of tobacco, marijuana or other recreational drugs. Former tobacco user. Reports that she is safe in current relationship. Family Hx: Denies family history of congenital anomalies, Cystic Fibrosis or chromosomal abnormalities Allergies: Milk Medications: PNV, FeSO4 Course: G1PO Dating criteria. LMP: 04/05/2023 LEO by LMP: 01/10/2024 US: 06/03/23 8+3 CW LMP Final LEO: 01/10/2024 serial Exams agree 12/31/23 us: EFW 83%, Biparietal diameter and abdominal circumference are in vega 90% or greater while the femur length is less than the 10%. Pt called "Jaime" FOB: Doreen "Jaime" sex: Girl. [employer] in [place] - leaving in May (post ) her mom lives with them - first grandbaby to her mom. ANC c/b: 1. L breast mass and skin changes - U/S on Aug - red, peau de' orange changes, B/L though L >> R - axillary breast tissue on R and B/L remnant nipples. -US 10/14 Stable -Stable on exam 10/21, some skin thickening. Possible mastitis.Never picked up prescription. That area has resolved per patient. Declined repeat exam. -Repeat exam 12/03/2023 showed resolution. 2. feelings of intense sadness intermittently - working on coping mechanisms - discussed medication, reassurance -Declines medications currently [ ] care 3. dizziness - intermittent, comes with headaches now 4.Partner leaving on deployment -Care for worsening mood. Letter given to patient. Pre- Weight: 127 BMI: 24.39 Blood type: B+ Antibody: negative CBC: PLT 285 HCT 35.1 HGB 12.0 RUB: immune VZV: immune HBsAg: negative HepC: N-R RPR/AB-EIA: N-R HIV: N-R PAP: 06/18/23 normal GC/CT: 06/18/23 negative HSV:denies in self and partner Genetic testing: MaterniT normal ; AFP-Negative Covid: all, rcvd booster this year Flu: 07/13 received hepatitis b vaccine x 2, next due in January. FAS: 09/01/2023 Placenta:Anterior w/o previa Cord: 3VC HIEN: 19.7 EFW: 440g 67th%ile Nose, lips and profile suboptimally evaluated 09/05/23 F/U- all WNL 50gm OGCT: 150 3HR GTT: 82/171/141/52 TDAP: 10/22/2023 Breast Pump: 10/22/2023 3rd trimester PLT 241 HCT 31.7 HGB 10.2 GBS:Negative Delivery plan: labor with epidural. Contraception: Physical exam: Normocephalic, atraumatic Heart RRR w/o M/G/R Lungs CTAB Abdomen gravid, soft, nontender. EFW 3200g FHR baseline X, moderate variability, + accelerations, no decelerations Contractions palpate moderate every 3-6 minutes with soft resting tone SVE , vertex, membranes intact Bilateral LE's no edema Mood is good. Assessment: 28 yo GX1 P0@ 39+5 weeks gestation confirmed by 1st trimester ultrasound. Early labor FHR Cat I GBS NEG/Positive Plan: Admit to [facility] for expectant labor management. Continuous monitoring. May consider intermittent monitoring at a later time. Jacuzzi PRN. Nitrous oxide PRN. Anticipate . (Brenda Willis) - HPI Current EDU 01/10/24 Gestation 39 Weeks and 5 Days 1 Vital Signs Temperature 98.3 F 01/08/24 05:05 Heart Rate 91 01/08/24 05:05 Respiratory Rate 20 01/08/24 05:05 Temperature 98.8 F 01/09/24 20:47 Heart Rate 88 01/09/24 20:47 Respiratory Rate 18 01/09/24 20:47 Blood Pressure 114/64 01/09/24 20:47 O2 Saturation 95 01/09/24 13:00 If not protocol: Oxygen Flow, liters/minute - NST Procedure NST Procedure Start Time 11:18 Stop Time 12:01 Meds/Allgy - Home Medications Home Medications: Ambulatory Orders Medication Instructions Recorded Confirmed Ferrous Sulfate 325 mg PO DAILY 11/26/23 01/08/24 - Allergies Allergies/Adverse Reactions: Allergies Allergy/AdvReac Type Severity Reaction Status Date / Time No Known Drug Allergies Allergy Verified 11/26/23 15:37 Physical - Abdominal Exam Vital Signs: Temp Pulse Resp BP Pulse Ox O2 Flow Rate 98.8 F 88 18 114/64 95 01/09/24 20:47 01/09/24 20:47 01/09/24 20:47 01/09/24 20:47 01/09/24 13:00 Plan for Labor - Plan For Labor I expect patient to be DC'd or transferred within 96 hours.: Yes - Plan For Labor Plan for Labor: admit for early labor at term. augment as needed. I have reviewed history, examined patient, and reviewed plan with Brenda and agree with the above. (Colette Peters)
[2024-01-08 06:38] LABS: BASOPHILS % (AUTO) 0.4 %; EOSINOPHILS # (AUTO) 0.2 10^3/uL (0.0-0.7); EOSINOPHILS % (AUTO) 1.5 %; HCT - HEMATOCRIT 37.7 % (37.0-47.0); HGB - HEMOGLOBIN 12.5 g/dL (12.0-16.0); LYMPHOCYTES # (AUTO) 1.9 10^3/uL (1.5-3.5); LYMPHOCYTES % (AUTO) 18.5 %; MEAN CORPUSCULAR HEMOGLOBIN 29.1 pg (27.0-31.0); MEAN CORPUSCULAR HGB CONC 33.2 g/dL (32.0-36.0); MEAN CORPUSCULAR VOLUME 87.9 fL (81.0-99.0); MEAN PLATELET VOLUME 10.2 fL (7.9-10.8); MONOCYTES # (AUTO) 0.7 10^3/uL (0.0-1.0); MONOCYTES % (AUTO) 6.5 %; NEUTROPHILS # (AUTO) 7.3 10^3/uL (1.5-6.6); NEUTROPHILS % (AUTO) 72.1 %; PLT - PLATELET COUNT 244 10^3/uL (130-450); RED BLOOD COUNT 4.29 10^6/uL (4.20-5.40); RED CELL DISTRIBUTION WIDTH 14.1 % (12.0-15.0); WHITE BLOOD COUNT 10.1 x10^3/uL (4.8-10.8)
[2024-01-08 06:50] LABS: ALBUMIN 3.7 g/dL (3.2-5.5); ALBUMIN/GLOBULIN RATIO 1.1 (1.0-2.2); BILIRUBIN,TOTAL 0.3 mg/dL (0.2-1.0); CALCIUM 9.6 mg/dL (8.5-10.3); CREATININE 0.5 mg/dL (0.6-1.3); POTASSIUM 3.7 mmol/L (3.5-4.5); TOTAL PROTEIN 7.1 g/dL (6.4-8.9)
--- NOTE | 2024-01-08 12:03 | PHARMACY PROGRESS NOTE ---
- Best Possible Medication History Admit Date and Time: 01/08/24 0509 Processed by: Pharmacy As the person ultimately responsible for medication therapy, providers are able to order a medication from an existing home medication list in [facility] via the "Reconcile Routine" prior to Confirmation of that medication by computer support specialist. Such practice is discouraged except when the physician, in their clinical judgment, deems that a medical need exists for a medication without regard to previous use.
--- NOTE | 2024-01-08 15:09 | ANESTHESIA ---
Pre-Anesthesia VS, & Labs - Diagnosis Active labor - Procedure vaginal delivery Vital Signs: Temp Pulse Resp BP Pulse Ox O2 Flow Rate 37.1 C 80 18 106/50 L 01/08/24 07:19 01/08/24 07:19 01/08/24 07:19 01/08/24 07:19 Height: 5 ft Weight (kg): 76.374 kg Body Mass Index: 32.8 BMI Classification: Obese - NPO Last Fluid Intake: clear liquids - Is Patient ?: Yes - Lab Results Current Lab Results: Laboratory Tests 01/08/24 05:52: Sodium 134 L, Potassium 3.7, Chloride 102, Carbon Dioxide 21, Anion Gap 11.0, BUN 7, Creatinine 0.5 L, Estimated GFR (MDRD) 147, Glucose 92, Calcium 9.6, Total Bilirubin 0.3, AST 15, ALT 10, Alkaline Phosphatase 158 H, Total Protein 7.1, Albumin 3.7, Globulin 3.4, Albumin/Globulin Ratio 1.1 01/08/24 05:52: WBC 10.1, RBC 4.29, Hgb 12.5, Hct 37.7, MCV 87.9, MCH 29.1, MCHC 33.2, RDW 14.1, Plt Count 244, MPV 10.2, Neut # (Auto) 7.3 H, Lymph # (Auto) 1.9, [place] # (Auto) 0.7, Eos # (Auto) 0.2, Baso # (Auto) 0.0, Absolute Nucleated RBC 0.00, Nucleated RBC % 0.0 01/08/24 05:52: Blood Type B POSITIVE, Antibody Screen NEGATIVE 01/08/24 05:52: TSH 1.61 Fish Bones: 01/08/24 05:52 01/08/24 05:52 Home Medications and Allergies Active Medications Carboprost Tromethamine (Carboprost Tromethamine 250 Mcg/Ml Vial) 250 mcg IM .ONCE PRN PRN Reason: Hemorrhage Fentanyl (Fentanyl 100 Mcg/2 Ml Vial) 50 mcg IVP Q1H PRN PRN Reason: Severe Pain (score 7-10) Hydralazine HCl (Hydralazine Inj 20 Mg/Ml Vial) 5 - 10 mg IVP Q20M PRN; Protocol PRN Reason: SBP> or= 160 OR DBP> or= 110 Hydralazine HCl (Hydralazine Inj 20 Mg/Ml Vial) 10 mg IVP .ONCE PRN; Protocol PRN Reason: SBP> or= 160 OR DBP> or= 110 Oxytocin/Sodium Chloride (Pitocin/Sodium Chloride) 500 mls @ 999 mls/hr IV PRN PRN; Protocol PRN Reason: POST- HEMORR PREVENTION Tranexamic Acid (Tranexamic 1,000 Mg/100ml-Nacl) 1,000 mg in 100 mls @ 600 mls/hr IV Q30M PRN PRN Reason: EBL >1200mL and within 3hr Lactated Ringer's (Lr) 1,000 mls @ 125 mls/hr IV .Q8H LINWOOD Last Admin: 01/08/24 06:17 Dose: 125 mls/hr Labetalol HCl (Labetalol 20 Mg/4 Ml Syringe) 20 - 80 mg IVP Q10M PRN; Protocol PRN Reason: SBP> or= 160 OR DBP> or= 110 Labetalol HCl (Labetalol 20 Mg/4 Ml Syringe) 20 mg IVP .ONCE PRN; Protocol PRN Reason: SBP> or= 160 OR DBP> or= 110 Labetalol HCl (Labetalol 20 Mg/4 Ml Syringe) 20 - 40 mg IVP Q10M PRN; Protocol PRN Reason: SBP> or= 160 OR DBP> or= 110 Lidocaine HCl (Lidocaine 1% 20 Ml Mdv) 20 ml ID .ONCE PRN PRN Reason: PERINEAL REPAIR Stop: 01/11/24 05:09 Methylergonovine Maleate (Methylergonovine 0.2 Mg/Ml Vial) 0.2 mg IM .ONCE PRN PRN Reason: Hemorrhage Misoprostol (Misoprostol 200 Mcg Tablet) 600 mcg BC .ONCE PRN PRN Reason: Hemorrhage Misoprostol (Misoprostol 200 Mcg Tablet) 800 mcg DC .ONCE PRN PRN Reason: Hemorrhage Nifedipine (Nifedipine 10 Mg Capsule) 10 - 20 mg PO Q20M PRN; Protocol PRN Reason: SBP> or= 160 OR DBP> or= 110 Oxytocin (Oxytocin 10 Unit/Ml Vial) 10 unit IM .ONCE PRN PRN Reason: Step One if no IV access. Sodium Chloride (Sodium Chloride Flush 0.9% 10 Ml Syringe) 10 ml IVP PRN PRN PRN Reason: NEEDED PER PROVIDER ORDERS Sodium Chloride (Sodium Chloride Flush 0.9% 10 Ml Syringe) 10 ml IVP Q8H LIN[place]OD Terbutaline Sulfate (Terbutaline 1 Mg/Ml Vial) 0.25 mg SUBQ .ONCE PRN PRN Reason: Tachystole Ferrous Sulfate 325 mg PO DAILY 11/26/23 Allergies/Adverse Reactions: Allergies Allergy/AdvReac Type Severity Reaction Status Date / Time No Known Drug Allergies Allergy Verified 11/26/23 15:37 Anes History & Medical History - Anesthetic History Family history of Anesthesia Complications: Denies Family history of Malignant Hyperthermia: Denies - Medical History Cardiovascular: reports: None Pulmonary: reports: None Gastrointestinal: reports: None Urinary: reports: None Neuro: reports: None Musculoskeletal: reports: None Endocrine/Autoimmune: reports: None Blood Disorders: reports: Anemia Skin: reports: None Smoking Status: Never smoker Psychosocial: reports: No issues indicated History of Cancer?: No - Obstetrical History : 1 Parity: 0 Events: reports: None Complications: reports: None Exam General: Alert, Oriented x3, Cooperative, No acute distress Dental: WNL Mouth Openin Fingerbreadth Neck Mobility: Normal Mallampati classification: II Thyromental Distance: 4-6 cm Mental/Cognitive Status: Alert/Oriented X3, Normal for patient Plan Anesthesia Type: Epidural Consent for Procedure(s) Verified and Reviewed: Yes Code Status: Attempt Resuscitation ASA classification: 2-Mild systemic disease Is this case an emergency?: No
--- NOTE | 2024-01-08 16:48 | PROVIDER PROGRESS NOTE ---
Labor Progress Note - Uterine Monitoring Uterine Monitoring Mode: positive: External toco Contraction Frequency (min/apart): 4 Contraction Intensity: positive: Mild to moderate Uterine Resting Tone: positive: Soft - Monitoring Monitor Mode: positive: External ultrasound Heart Rate Baseline: 140 Heart Rate Variability: positive: Moderate (6-25 bmp) Accelerations: positive: Present, 15x15 Decelerations: positive: None Strip Review: positive: Category I - Vaginal Exam Dilation (in cm): 3 Effacement (%): 75 Station: -3 Cervical Position: Posterior - Labor Progress Note Labor Progress Note/Additional Text: 28yo at 39.5w in prodromal early labor, desiring IOL - Initially progressed from 1cm to 3cm but now without change. She would like to proceed with Pitocin induction. Informed consent obtained. - GBS negative - Start Pitocin per protocol - Anticipate tomorrow
[2024-01-08] MEDS: OXYTOCIN/SODIUM CHLORIDE 500 ML IV SCH (19:01)
[2024-01-08] MEDS ORDERED: LIDOCAINE 2%-EPI 1:100000 20 ML MDV ONE (21:22)
[2024-01-08] MEDS ORDERED: ROPIVACAINE 0.2% 200 MG/100 ML BAG EP ONE (21:23)
[2024-01-08] MEDS ORDERED: NALOXONE 0.4 MG/ML VIAL IVP PRN (21:51)
[2024-01-08] MEDS: ePHEDrine 50 MG/ML VIAL IVP PRN (23:21)
[2024-01-09] MEDS: ROPIVACAINE 0.2% 200 MG/100 ML BAG EP PRN (03:37)
--- NOTE | 2024-01-09 04:53 | PROVIDER PROGRESS NOTE ---
Labor Progress Note - Uterine Monitoring Contraction Frequency (min/apart): 3-5 Contraction Intensity: positive: Mild to moderate Uterine Resting Tone: positive: Soft - Monitoring Monitor Mode: positive: External ultrasound Heart Rate Baseline: 140 Heart Rate Variability: positive: Minimal (0-5 bpm) Accelerations: positive: Present, 10x10 (=/32 wks) Decelerations: positive: None - Labor Progress Note Labor Progress Note/Additional Text: 28yo at 39.5w in prodromal early labor - 3cm - Desires to begin pitocin per protocol for IOL after finishing her dinner -long discussion related to mechanism of action and titration of pitocin for labor induction - GBS negative - very supportive Mother and spouse at bedside.
--- NOTE | 2024-01-09 09:05 | PROVIDER PROGRESS NOTE ---
Labor Progress Note - Uterine Monitoring Uterine Monitoring Mode: positive: External toco Contraction Frequency (min/apart): 2 Contraction Intensity: positive: Moderate Uterine Resting Tone: positive: Soft - Monitoring Monitor Mode: positive: External ultrasound Heart Rate Baseline: 140 Heart Rate Variability: positive: Moderate (6-25 bmp) Accelerations: positive: Present, 15x15 Decelerations: positive: None - Vaginal Exam Dilation (in cm): 10 Effacement (%): 100 Cervical Position: Anterior - Labor Progress Note Labor Progress Note/Additional Text: 28yo at 39.6w now in second stage following elective IOL - Received epidural, required 6 doses ephedrine overnight - SROM 2300 - Pitocin up to 10mu/m now - Trial of pushing with minimal descent, will labor down and start pushing again
[2024-01-09] MEDS ORDERED: LIDOCAINE-PF 2% 10 ML AMP SUBQ ONE ×2 (09:38→11:08)
[2024-01-09] MEDS: CITRIC ACID/SODIUM CITRATE 15 ML UDC PO ONE (09:40)
[2024-01-09] MEDS: ceFAZolin 2 GM VIAL IVP STA (09:40)
[2024-01-09] MEDS: AZITHROMYCIN INJ 500 MG in SODIUM CHLORIDE 0.9% 250 ML IV ONE (10:00)
[2024-01-09] MEDS ORDERED: ePHEDrine 50 MG/ML VIAL IVP ONE (10:02)
[2024-01-09] MEDS ORDERED: KETAMINE 200 MG/20 ML VIAL ONE (10:35)
[2024-01-09] MEDS ORDERED: MIDAZOLAM 2 MG/2 ML VIAL ONE (10:40)
[2024-01-09] MEDS ORDERED: fentaNYL 100 MCG/2 ML VIAL ONE (10:50)
[2024-01-09] MEDS ORDERED: ROPIVACAINE 0.5% PF 20 ML VIAL ONE (11:08)
[2024-01-09] MEDS ORDERED: DEXAMETHASONE 4 MG/ML VIAL ONE (11:08)
[2024-01-09] MEDS ORDERED: NALOXONE 0.4 MG/ML VIAL IVP PRN ×2 (11:14→11:44)
[2024-01-09] MEDS ORDERED: WITCH HAZEL/GLYCERIN 1 PAD TOP PRN (11:14)
[2024-01-09] MEDS ORDERED: OXYTOCIN/SODIUM CHLORIDE 500 ML IV PRN (11:14)
[2024-01-09] MEDS ORDERED: CALCIUM CARBONATE CHEW 500 MG TABLET PO PRN (11:14)
--- NOTE | 2024-01-09 11:22 | DELIVERY NOTE ---
Delivery Note - Labor Labor: positive: Augmented by oxytocin - Delivery Method Delivery Method: positive: Primary - Presentation Presentation: positive: Vertex, KATHY - left occiput anterior - Nuchal Cord Nuchal Cord: positive: Present - Anesthetic Anesthetic Type: - Amniotic Fluid Description Amniotic Fluid Description: positive: Light meconium - Delivery Outcome Delivery Outcome: positive: Livebirth - : positive: Bulb syringe, Stimulated, Warmed, Canones used, Warmer used sex: positive: Female - Cord Cord: positive: 3 vessels - Placenta Placenta: positive: Intact - Estimated Blood Loss Estimated Blood Loss (in cc): 800 - Delivery Comments (Free Text/Narrative) Delivery Comments (Free Text/Narrative): See operative report for uncomplicated section.
--- NOTE | 2024-01-09 11:25 | OPERATIVE REPORT ---
Operative Report - General Admit Date: 01/08/24 Procedure Date: 01/09/24 Planned Procedure: Primary section. Pre-Op Diagnosis: 28yo with IUP 39.6w, intolerance, failure to descend Procedure Performed: Primary section Post Op Diagnosis: 28yo with IUP 39.6w, intolerance, failure to descend, CPD - Procedure Note Primary Surgeon: Ghazala Urbina DO Secondary Surgeon: Ruchi Romero; assistance required for retraction, safe delivery Anesthesia Provider: Loli Mccann CRNA Anesthesia Technique: Epidural Estimated Blood Loss (mL): 800 Indications: 28yo with IUP 39.6w, intolerance, failure to descend Findings: Meconium fluid, not previously noted Viable female Apgars 8, 9 Normal appearing uterus, tubes, ovaries 4004g Complications: None - Other Other Information/Narrative: Patient pushing with good efforts for about 1 hour. Late decelerations to 80s with each contraction. Minimal descent noted with strong contractions and good maternal efforts. Discussed with patient suspected CPD in setting of intolerance and minimal descent. Informed consent obtained for PCD. Under adequate epidural anaesthetic with a Arango catheter inserted, the patient was prepped and draped in the usual sterile fashion in the supine position with a leftward tilt. A Pfannensteil incision was made. The incision was carried down to the fascia with sharp dissection and cautery. The fascia was incised transversely and dissected off the rectus muscle using blunt dissection. Electrocautery was used for hemostasis. The peritoneum was opened taking care not to injure the bladder. The vesicouterine peritoneum was dissected off the lower uterine segment. The lower segment was assessed and a low transverse incision was made. The uterine incision was extended bluntly. Meconium fluid noted with AROM. The fetus was presenting as a vertex. The head was delivered without difficulty and the rest of the body followed easily. After one minute of delayed cord clamping, the cord was clamped twice and cut and the baby transferred to the warmer, awaiting the pediatric staff. Cord blood obtained. The placenta was then delivered spontaneously. The uterus was explored and was empty of all tissue. The uterus was exteriorized for better visualization. The uterine incision was then closed in one locking layer with 0- Monocryl. Tubes and ovaries were examined and appeared normal. Hemostasis at all sites. The fascia was closed with 0-Vicryl in a running unlocked fashion. Subcutaneous layer reapproximated with 2-0 Chromic. The skin was then reapproximated with 3-0 Monocryl. At the end of the procedure all sponges, instruments, and sharps were counted and correct. Estimated blood loss was 800cc. The patient and baby girl Margaret were taken to the recovery in stable condition. The female weighed 4004g. Apgars 8, 9 at 1 and 5 minutes respectively.
[2024-01-09] MEDS ORDERED: ONDANSETRON 4 MG/2 ML VIAL IVP PRN (11:44)
[2024-01-09] MEDS ORDERED: MORPHINE 2 MG/ML CARPUJECT IVP PRN (11:44)
[2024-01-09] MEDS ORDERED: METOCLOPRAMIDE 10 MG/2 ML VIAL IVP PRN (11:44)
[2024-01-09] MEDS ORDERED: ATROPINE ABBOJECT 1 MG/10 ML SYRINGE IVP PRN (11:44)
[2024-01-09] MEDS ORDERED: ePHEDrine 50 MG/ML VIAL IVP PRN (11:44)
[2024-01-09] MEDS: LACTATED RINGERS 1,000 ML IV SCH (12:01)
[2024-01-09] MEDS: fentaNYL 100 MCG/2 ML VIAL IVP PRN (12:05)
[2024-01-09] MEDS ORDERED: HYDROmorphone 1 MG/ML CARPUJECT ONE (12:19)
[2024-01-09] MEDS: HYDROmorphone 0.5 MG/0.5 ML SYRINGE IVP PRN (12:25)
[2024-01-09] MEDS ORDERED: ACETAMINOPHEN 1,000 MG/100 ML 1,000 MG/100 ML BAG IV ONE (12:30)
[2024-01-09] MEDS ORDERED: KETOROLAC 30 MG/ML VIAL ONE (12:30)
--- NOTE | 2024-01-09 13:42 | ANESTHESIA POST OP EVALUATION ---
Anesthesia Post Eval - Post Anesthesia Eval Vitals: Last Vital Signs Temp 37.8 C 01/09/24 12:25 Pulse 103 H 01/09/24 12:35 Resp 20 01/09/24 12:35 BP 130/82 H 01/09/24 12:35 Pulse Ox 94 01/09/24 12:35 O2 Flow Rate CV Function Including HR & BP: Stable Pain Control: Satisfactory Nausea & Vomiting: Negative Mental Status: Baseline Respiratory Status: Airway Patent Hydration Status: Satisfactory Anesthesia Complications: None
[2024-01-09] MEDS: oxyCODONE 5 MG TABLET PO PRN (15:01)
--- NOTE | 2024-01-09 17:55 | PROVIDER PROGRESS NOTE ---
Subjective - Prog Note Date Prog Note Date: 01/09/24 Prog Note Time: 17:53 - Subjective Pt reports feeling: Improved Subjective: Subjective: 28yo with IUP 39.6w, Primary section for intolerance, failure to descend, CPD Patient recovering well from this morning's section. Pain controlled with scheduled antiinflammatories and acetaminophen and PRN oxycodone for breakthrough pain. Objective Novoa in, draining light/clear urine. Nursing plan to try and ambulate patient within the next hour and remove novoa if patient does well. Lochia small Tolerating clear liquids IV fluids infusing. Plan established to stop continuos fluid after successful ambulation Dressing dry and intact. General: Alert, oriented, no apparent distress. Cardiovascular: 1+ generalized edema Lungs: No increased work of breathing. Abdomen: Uterus firm. Below umbilicus. No guarding or rebound. Extremities: No pain on palpation. Distal pulses intact. Objective - Vital Signs/Intake & Output Reviewed Vital Signs: Yes Vital Signs: Vital Signs x48h Temp Pulse Resp BP Pulse Ox 01/09/24 12:35 103 H 20 130/82 H 94 01/09/24 12:30 103 H 22 130/86 H 95 01/09/24 12:25 37.8 C 102 H 20 130/79 97 01/09/24 12:20 103 H 20 134/81 H 97 01/09/24 12:15 104 H 20 127/85 H 97 01/09/24 12:10 105 H 21 131/79 H 97 01/09/24 12:05 105 H 19 131/79 H 97 01/09/24 12:00 111 H 22 133/70 H 97 01/09/24 11:55 111 H 22 133/80 H 97 01/09/24 11:50 37.6 C 114 H 23 132/87 H 97 01/09/24 11:45 114 H 23 114/97 H 98 01/09/24 11:40 117 H 20 117/98 H 98 01/09/24 11:35 37.9 C 108 H 18 134/78 H 98 Intake & Output: Intake & Output 01/06/24 01/07/24 01/08/24 01/09/24 23:59 23:59 23:59 23:59 Intake Total 758.871 9792.467 Output Total 300 Balance 484.904 2036.467 - Objective General Appearance: positive: Alert, Mild distress, Anxious Eyes Bilateral: positive: EOMI Neurologic/Psychiatric: positive: Oriented x3, Mood/affect nml - Lab Results Fish Bones: 01/08/24 05:52 01/08/24 05:52 ABX Reporting Has patient been on IV antibiotics over the past 48 hours?: Yes Assessment/Plan - Problem List (1) Delivery by section Impression: 28yo with IUP 39.6w, Primary section for intolerance, failure to descend, CPD Continue with scheduled antiinflammatories and acetaminophen and PRN oxycodone for breakthrough pain. Ambulate this evening. Remove novoa if tolerated well. Encourage continued ambulation. Monitor for changes to lochia and incision healing complications. Advance diet as tolerated. Continued support. stop continuos fluid after successful ambulation Consider CBC prior to discharge Plan for discharge 01/11/2024 (2) Other mental disorders complicating the puerperium Impression: Significant anxiety during labor and prior to delivery Plan to address mood and discuss depression and other mood complications .
[2024-01-09] MEDS: KETOROLAC 30 MG/ML VIAL IVP SCH (18:37)
[2024-01-09] MEDS: ACETAMINOPHEN 500 MG TABLET PO SCH (22:37)
[2024-01-09] MEDS: DOCUSATE SODIUM 100 MG CAPSULE PO SCH (22:37)
[2024-01-10 05:43] LABS: HCT - HEMATOCRIT 26.6 % (37.0-47.0); HGB - HEMOGLOBIN 8.7 g/dL (12.0-16.0); MEAN CORPUSCULAR HEMOGLOBIN 29.6 pg (27.0-31.0); MEAN CORPUSCULAR HGB CONC 32.7 g/dL (32.0-36.0); MEAN CORPUSCULAR VOLUME 90.5 fL (81.0-99.0); MEAN PLATELET VOLUME 9.6 fL (7.9-10.8); RED BLOOD COUNT 2.94 10^6/uL (4.20-5.40); RED CELL DISTRIBUTION WIDTH 14.4 % (12.0-15.0); WHITE BLOOD COUNT 19.8 x10^3/uL (4.8-10.8)
[2024-01-10] MEDS ORDERED: IBUPROFEN 600 MG TABLET PO SCH (06:00)
[2024-01-10] MEDS ORDERED: KETOROLAC 30 MG/ML VIAL ONE (09:12)
[2024-01-10] MEDS: IBUPROFEN 600 MG TABLET PO SCH (14:38)
[2024-01-10] MEDS: FERRIC GLUCONATE 125 MG in SODIUM CHLORIDE 0.9% 100ML 100 ML IV ONE (14:40)
--- NOTE | 2024-01-10 15:04 | PROVIDER PROGRESS NOTE ---
Subjective - Prog Note Date Prog Note Date: 01/10/24 Prog Note Time: 15:00 - Subjective Pt reports feeling: Improved Subjective: Comfortable with pain medications. Appropriate lochia. Ambulating. Voiding. Tolerating regular diet. Mood is good. Discussed medication for anxiety/depression. She has good support from and her mother. She will see how she does and will advise if she needs to restart medication. and formula feeding. Denies lightheadedness. Reviewed post operative anemia, she accept iron infusion today. Objective - Vital Signs/Intake & Output Reviewed Vital Signs: Yes Vital Signs: Vital Signs x48h Temp Resp BP Pulse Ox 01/10/24 07:35 98.0 F 16 105/56 L 97 Intake & Output: Intake & Output 01/07/24 01/08/24 01/09/24 01/10/24 23:59 23:59 23:59 23:59 Intake Total 184.293 2738.300 1500 Output Total 850 1300 Balance 995.629 1424.300 200 - Objective General Appearance: positive: No acute distress Respiratory: positive: No respiratory distress Cardiovascular: positive: Other (Regular rate) Abdomen: positive: Other (Appropriately tender. Dressing c/d/i) Skin: positive: Color nml Extremities: positive: Non-tender Neurologic/Psychiatric: positive: Oriented x3 - Lab Results Fish Bones: 01/10/24 05:40 01/08/24 05:52 Other Labs: Lab Results x24hrs 01/10/24 Range/Units 05:40 WBC 19.8 H (4.8-10.8) x10^3/uL RBC 2.94 L (4.20-5.40) 10^6/uL Hgb 8.7 L (12.0-16.0) g/dL Hct 26.6 L (37.0-47.0) % MCV 90.5 (81.0-99.0) fL MCH 29.6 (27.0-31.0) pg MCHC 32.7 (32.0-36.0) g/dL RDW 14.4 (12.0-15.0) % Plt Count 185 (130-450) 10^3/uL MPV 9.6 (7.9-10.8) fL Assessment/Plan - Problem List (1) care following delivery Impression: 28yo s/p PCD 01/08/ for NRFHT/Failure of descent/CPD following elective IOL, POD#1 doing well - Routine , postoperative care - Anticipate discharge tomorrow (2) Acute postoperative anemia due to expected blood loss Impression: IV Ferrlicit given today.
[2024-01-10] MEDS: SIMETHICONE CHEW 80 MG TABLET PO PRN (17:02)
--- NOTE | 2024-01-11 09:32 | Discharge Plan ---
Discharge Plan Problem Reviewed?: Yes Diet: Regular Activity Restrictions: Activity as Tolerated Shower Restrictions: No Driving Restrictions: Yes (No driving until narcotic pain medication stopped) No Smoking: If you smoke, Please STOP! Call for help. Disposition: 01 Home, Self Care Condition: Good Instruction Topics: Anemia, Depression , Self Care, C Section Dc Assessment: Date of Admission 01/08/2024 Date of Discharge 01/12/2024 Diagnosis on admission: 1. Term gestation 2. Early labor Diagnosis on Discharge 1. Delivery by section 2. Acute postoperative anemia due to expected blood loss 3. Breast feeding with supplementation 4. Other mental disorders complicating , childbirth and puerperium. Brief History: She is a patient of [facility] who presented on 01/08/2024 with complaints of contractions. Labor progressed slowly and she reached complete dilation. She pushed for some time with little decent and significant intolerance. A primary section was done under general anesthesia. EBL 800. Postoperative course relatively unremarkable with the exception of a drop in H&H post operative day one from 12.5/37.7% to 8.7/26.6%, IV Iron administered. Pain relatively well managed with scheduled and prn narcotics. Incision well approximated without edema or erythema. Lochia minimal. Normal uterine involution. She has been ambulating, voiding, tolerating regular diet, showering and caring for baby with family support. States being ready for discharge today. She will be discharged to home today post operative day 3 with pain and stool management, already picked up at pharmacy. Feels her mood is in a stable place. Discussed mood disturbance at length and the importance of rest and reaching out for help/resources if she feels overwhelmed or concerned. She understands that those closest to her will likely be the ones who notice concern. She has been scheduled to follow-up with [facility] in one week for in person visit, has a visit with pediatrics early next week. She has been given precautions to call with any mood or physical concerns to include but not limited to fevers, chills, abdominal pain, increasing bleeding, or foul smelling vaginal lochia. I agree with the above documentation by AMPARO Brady. Patient seen and evaluated with her. Plan for discharge with follow up in clinic on Friday. Ruchi Romero MD Follow-up with: Ruchi Romero MD [Provider Admit Priv/Credential] -
[2024-01-11] MEDS: oxyCODONE 5 MG TABLET PO PRN (13:02)
[2024-01-11] MEDS: hydrOXYzine PAMOATE 25 MG CAPSULE PO PRN (13:03)
--- NOTE | 2024-01-11 14:22 | PROVIDER PROGRESS NOTE ---
Subjective - Prog Note Date Prog Note Date: 01/11/24 Prog Note Time: 11:00 - Subjective Pt reports feeling: Worse Objective - Vital Signs/Intake & Output Reviewed Vital Signs: Yes Vital Signs: Vital Signs x48h Temp Pulse Resp BP 01/11/24 08:02 36.8 C 79 14 106/59 L Intake & Output: Intake & Output 01/08/24 01/09/24 01/10/24 01/11/24 23:59 23:59 23:59 23:59 Intake Total 053.516 7195.300 2110 1700 Output Total 850 1300 Balance 693.477 9920.620 049 8177 - Objective General Appearance: positive: Moderate distress Eyes Bilateral: positive: Normal inspection ENT: positive: No signs of dehydration Neck: positive: Nml inspection Respiratory: positive: No respiratory distress Extremities: positive: Non-tender Neurologic/Psychiatric: positive: Oriented x3 - Lab Results Fish Bones: 01/10/24 05:40 01/08/24 05:52 - Other Results/Comments Other Results/Comments: Pain increased today with increased ambulation. Discussed increase dose of prn oxycodone. Appropriate lochia. Voiding. Tolerating regular diet. Mood is good. Discussed anxiety and depression and reviewed medication and counseling resouces available to. Feels she is in a good place now but understands resources. She has good support from and her mother. She does not desire to start medication at this time. and formula feeding. Denies lightheadedness. Received IV iron infusion yesterday. Desires to stay in hospital until this afternoon/evening to see if she's ready for discharge given her increased pain today. Reviewed plan of care with nursing team. ABX Reporting Has patient been on IV antibiotics over the past 48 hours?: No Assessment/Plan - Problem List (1) Delivery by section Impression: Impression: 28yo s/p PCD 01/09/24 for NRFHT/Failure of descent/CPD following elective IOL, POD#2 doing well - Pain increased with increasing ambulation/activity. Desires to reevaluate status this afternoon/evening to determine her readiness for discharge to home. - Routine , postoperative care - Anticipate discharge today or tomorrow dependent on pain management. (2) Other mental disorders complicating the puerperium Impression: Doing well. Reviewed depression in detail. Reviewed available counseling and medication support. Declines the need to introduce medications at this time as she feels very happy. She did share that the c/s was unexecpted and thinking about the surgery makes her tearful. Reviewed it's important to share these feeling and be very open with her support network as her mood changes. Reviewed the importance of sleep and rest expecially when she returns home.
[2024-01-12 09:31] VITALS: BP 122/60; O2SAT 96
[2024-01-12] MEDS: HYDROCORTISONE 1% CREAM 28 GM TUBE TOP PRN (10:40)
--- NOTE | 2024-01-12 13:10 | Labor Flowsheet ---
Labor Flowsheet Datetime Report Generated by CPN: 01/12/2024 13:10 Datetime: 01/12/2024 09:03 VITAL SIGNS NBP Sys/Ines/Mean (mmHg): 122 : 60 : 74 Pulse: 85 LaborFlag: Labor Datetime: 01/10/2024 00:25 SpO2 (%): 96 Datetime: 01/09/2024 09:58 Communication Comments: monitors removed pt going to OR Datetime: 01/09/2024 09:45 ASSESSMENT A Monitor Mode: External US FHR Baseline Rate : 145 FHR Baseline Changes: No Baseline Change Variability: Moderate 6-25 bpm Accelerations: 15X15 Decelerations: Variable Category: Category II Oxygen Method: Room Air Datetime: 01/09/2024 09:30 UTERINE ACTIVITY Monitor Mode: External Frequency (min): 1-2min Quality: Moderate Duration (sec): 60-70sec Pattern: Normal: <= 5 Contractions in 10 Minutes Resting Tone (Palpate): Relaxed Pitocin Checklist: At Least 1 Acceleration of 15 bpm x 15 Seconds in 30 Minutes or Adequate Variabi lity; No More than 1 Late Deceleration Occurred in Past 30 Minutes; No More than 2 Variable Decelerat ions > 60 Seconds in Duration and decreasing >60 bpm in 30 minutes; No More than 5 Uterine Contractio ns in 10 Minutes for any 20 Minute Interval; Uterus Palpates Soft between Contractions Datetime: 01/09/2024 08:30 Monitor Interventions for UA: Angustura Adjusted Datetime: 01/09/2024 07:37 VAGINAL EXAM Dilatation (cm): 9.0 Effacement (%): 90 Station: 1 Exam by: Dr. Regan Datetime: 01/09/2024 07:15 Stage of : Labor Respirations: 17 Temperature (C): 37.0 Temperature Route: Oral Datetime: 01/09/2024 06:26 MEDICATIONS Pitocin (milliunits): Increased to @ 8 Anesthesia Level Check: T10- Umbilicus Datetime: 01/09/2024 06:07 COMMUNICATION Communication: Call/Page Returned by Provider; Report Given to @ Dr Urbina Notification Reason: Status Update; Status; Labor Status; Membrane Status; Uterine Activity; Maternal Vital Sign Change Datetime: 01/09/2024 05:58 Comments: down to 90bpm baby very active up to baseline of 130 after60 seconds Datetime: 01/09/2024 05:44 Pain Coping: Sleeping Headache: Denies Nausea/Vomiting: Denies Datetime: 01/09/2024 04:31 Actions for Decelerations: Side to Side Datetime: 01/09/2024 03:46 Monitor Interventions for FHR: Ultrasound Adjusted Medication Comments: Epidural bag changed Datetime: 01/09/2024 03:30 Amniotic Fluid Amount: Small Datetime: 01/09/2024 02:58 Vaginal Bleeding: Normal Show Cervix, Consistency: Soft Cervix, Position: Anterior Datetime: 01/09/2024 02:54 Patient Care Comments: EFM telemetry unit exchanged out for low charge level Datetime: 01/09/2024 02:53 Patient Position/Activity: Right Lateral Datetime: 01/09/2024 02:21 Magnesium/Antihypertensives: Ephedrine IV (mg) @ 5 Datetime: 01/09/2024 00:20 Pain Presence: None/Denies Datetime: 01/08/2024 23:15 Membrane Status: Ruptured Membranes Rupture Method: Spontaneous Amniotic Fluid Color: Clear Amniotic Fluid Odor: Normal Datetime: 01/08/2024 23:10 I/O Interventions: Arango Cath Inserted TEACHING Instructional Method: Verbal; Verbalized Understanding Plan of Care: Plan of Care Discussed Pain Management: Epidural Datetime: 01/08/2024 22:22 Pain Relief Measures: Epidural Given Datetime: 01/08/2024 21:39 Epidural Procedure: Loading Dose Datetime: 01/08/2024 21:25 PROCEDURE TIME OUT Procedure Verify: Correct Patient Identity; Correct Side and Site are Marked; Accurate Procedure Co nsent Form; Agreement on Procedure to be Done; Correct Patient Position; Relevant Images and Results are Properly Labeled and Displayed; Safety Precautions Based on Patient History or Medication Use Epidural Positioning: Sitting Datetime: 01/08/2024 20:15 Pain Type: Cramping Pain Location: Abdomen; Back Comfort Measures: Breathing/Relaxation Datetime: 01/08/2024 19:12 MATERNAL ASSESSMENT Level of Consciousness: Alert DTR's/Clonus: DTRs 2+; No Clonus Breath Sounds, Left: Clear and Equal Breath Sounds, Right: Clear and Equal RUQ Epigastric Pain: Denies Datetime: 01/08/2024 18:25 PAIN Pain Scale: 7 Datetime: 01/08/2024 14:36 Anesthesia Comments: DIAZO TECHNICIAN Saturnino at bedside to consent Pt Datetime: 01/08/2024 13:43 Vital Sign Comments: Pain Assessment Comments: RN at bedside, FOB shown counterpressure and massage to support Pt during labor. Datetime: 01/08/2024 06:10 PATIENT CARE IV/Blood Work: IV Started; IV Bolus Started; New IV Bag Hung Datetime: 01/08/2024 05:50 ANESTHESIA Anesthesia Plans: Epidural Datetime: 01/04/2024 01:11 Membranes Ruptured Date/Time: 01/08/2024 23:15 Datetime: 01/04/2024 00:42 Presentation 'A': Cephalic
--- NOTE | 2024-01-14 15:46 | DISCHARGE SUMMARY ---
Discharge Summary Admit Date: 01/08/24 Discharge Date: 01/12/24 Discharging Provider: Ruchi Romero MD - DIAGNOSES Admission Diagnoses: Term Early labor Discharge Diagnoses with Status of Each Condition: Delivery by delivery Acute postoperative anemia due to expected blood loss Breast feeding with supplementation History mood disorder - HPI History of Present Illness: See HPI documented in separate note, Discharge Plan - HOSPITAL COURSE Hospital Course: See documentation in separate note, Discharge Plan - ALLERGIES Allergies/Adverse Reactions: Allergies Allergy/AdvReac Type Severity Reaction Status Date / Time No Known Drug Allergies Allergy Verified 11/26/23 15:37 - MEDICATIONS Home Medications: Ambulatory Orders Medication Instructions Recorded Confirmed Ferrous Sulfate 325 mg PO DAILY 11/26/23 01/08/24 - PHYSICAL EXAM AT DISCHARGE General Appearance: positive: No acute distress Respiratory: positive: No respiratory distress Cardiovascular: positive: Regular rate & rhythm Abdomen: positive: Non-tender Extremities: positive: Non-tender, Other (Trace LE edema) Neurologic/Psychiatric: positive: Mood/affect nml - LABS Result Diagrams: 01/10/24 05:40 01/08/24 05:52 - FOLLOW UP Follow Up: On Friday in [facility].
== END 2024-01-12 13:02 | disposition home or self-care (01) | DRG 787 ==
LOC: WFO 05:00 → FBP 05:02 → WFO 05:08 → FBP 05:09
PROVIDERS: ADMIT Obstetrics & Gynecology; ATTEND Obstetrics & Gynecology
PROC: 3E033VJ Introduction of Other Hormone into Peripheral Vein, Percutaneous Approach (ICD-10-PCS; 2024-01-08)
PROC: 10D00Z1 Extraction of Products of Conception, Low, Open Approach (ICD-10-PCS; principal; 2024-01-09 10:00)
DX: O32.4XX0 Maternal care for high head at term, not applicable or unspecified (principal); D62 Acute posthemorrhagic anemia; O77.0 Labor and delivery complicated by meconium in amniotic fluid; Z3A.39 39 weeks gestation of pregnancy; Z37.0 Single live birth; O90.81 Anemia of the puerperium; O33.9 Maternal care for disproportion, unspecified; O99.344 Other mental disorders complicating childbirth; F41.1 Generalized anxiety disorder; O76 Abnormality in fetal heart rate and rhythm complicating labor and delivery
CPT/HCPCS: 36415; 80053; 84443; 85025; 85027; 86850; 86900; 86901; A9270; J0131; J1170; J2795; J2916; J3490; J7120

== ENCOUNTER 2024-01-21 08:00 | Outpatient (CLI) | payer OTHER ==
[2024-01-21 17:08] LABS: BILIRUBIN,URINE NEGATIVE (NEGATIVE); GLUCOSE, URINE (UA) NEGATIVE (NEGATIVE); KETONES,URINE (UA) NEGATIVE (NEGATIVE); LEUKOCYTE ESTERASE, URINE MODERATE (NEGATIVE); NITRITE,URINE NEGATIVE (NEGATIVE); OCCULT BLOOD,URINE MODERATE (NEGATIVE); PROTEIN,URINE NEGATIVE (NEGATIVE); UROBILINOGEN,URINE 0.2 (NORMAL) E.U./dL (NORMAL)
[2024-01-21 17:18] LABS: CLARITY,URINE CLEAR (CLEAR)
[2024-01-21 17:27] LABS: BACTERIA,URINE Many /HPF (None Seen); EPITHELIAL CELLS,UR MOD Transitional /HPF (<= Few); MUCUS,URINE Few Strands; RBC,URINE 0-5 /HPF (0-5); SQUAMOUS EPITHELIAL CELL,UR FEW Squamous (<= Few)
== END 2024-01-21 23:59 | disposition home or self-care (01) ==
LOC: LAB.WC 08:00
PROVIDERS: ATTEND Obstetrics & Gynecology
DX: R30.0 Dysuria (principal)
CPT/HCPCS: 81001; 87086

== ENCOUNTER 2024-02-06 10:31 | Outpatient (CLI) | payer OTHER ==
[2024-02-06 10:42] LABS: HCT - HEMATOCRIT 38.4 % (37.0-47.0); MEAN CORPUSCULAR HGB CONC 31.3 g/dL (32.0-36.0); MEAN CORPUSCULAR VOLUME 89.5 fL (81.0-99.0); MEAN PLATELET VOLUME 9.6 fL (7.9-10.8); RED BLOOD COUNT 4.29 10^6/uL (4.20-5.40); RED CELL DISTRIBUTION WIDTH 12.9 % (12.0-15.0); WHITE BLOOD COUNT 6.9 x10^3/uL (4.8-10.8)
[2024-02-06 11:11] LABS: THYROID STIMULATING HORMONE 0.48 uIU/mL (0.34-5.60)
[2024-02-06 11:18] LABS: FERRITIN 18.7 ng/mL (11.0-306.8)
== END 2024-02-06 10:32 | disposition home or self-care (01) ==
LOC: LAB 10:31
PROVIDERS: ATTEND Obstetrics & Gynecology
DX: D64.9 Anemia, unspecified (principal); F33.9 Major depressive disorder, recurrent, unspecified
CPT/HCPCS: 36415; 82306; 82607; 82728; 84443; 85027